=== PATIENT | male | born 1955 | race Caucasian/White ===

== ENCOUNTER 2017-02-17 09:00 | Emergency (ER) | payer BC ==
[~2017-02-17] VITALS: Ht 182.9 cm; Wt 135.3 kg
[~2017-02-17 09:00] MED LIST: ASPI1TAB83 PO; COEN1CAP46 PO; LISI-526 PO; OMEGA RED PO; SIMV20TA2 PO
[2017-02-17 09:07] VITALS: TEMP 36.5; Ht 182.9 cm; Wt 135.3 kg
[2017-02-17] MEDS ORDERED: COEN150C PO (09:32)
--- NOTE | 2017-02-17 09:58 | EMERGENCY ROOM VISIT NOTE ---
History Report prepared by Inocencio: Mark Gregg Under the Supervision of: Ella GomezO. First contact with patient: 09:32 Chief Complaint: HIP PAIN Stated Complaint: HIP PAIN,SCIATIC NERVE PAIN History of Present Illness The patient is a 61 year old male who presents to the Emergency Room with complaints of persistent bilateral hip pain that started a couple days ago. He says that he did wheelbarrow lifting a couple days ago, and ever since then, he has had bilateral hip pain, with pain that shoots down his left leg. He says that the pain does not go down the right leg. The patient says that the pain goes down the entire left leg. He notes that he has a history of right sciatic nerve pain, and had used Naproxen for that. He used Naproxen last night for the current pain, but it did not help at all. The patient states that sitting and lying down eases the pain, and movement/standing worsens the pain. He adds that he has felt some pressure in his rectum for the past few days, but has had regular bowel movements with no hard time going. He denies any numbness/tingling , abdominal pain, or leg swelling. No difficulty with urination, no numbness or tingling in his genital region. The patient says that he has not had any recent falls or trauma. He does not have any kidney problems or problems with bleeding/ulcers. Source of History: patient Onset: A couple days ago Position: other (bilateral hips) Timing: other (persistent) Modifying Factors (Worsening): movement, other (standing) Modifying Factors (Relieving): rest, other (lying down) Associated Symptoms: No abdominal pain, No numbness (or tingling) Note: Associated symptoms: Left leg pain. Pressure in rectum. Denies leg swelling or recent falls. Review of Systems See HPI for pertinent positives & negatives. A total of 10 systems reviewed and were otherwise negative. Past Medical & Surgical Medical Problems: (1) No chronic problems Family History No pertinent family history Social History Smoking Status: Never Smoker Marital Status: single Occupation Status: retired Current/Historical Medications Scheduled Aspirin (Aspirin), 81 MG PO QPM Coenzyme Q10 (Ubidecarenone) (Co Q-10), 150 MG PO DAILY Lisinopril (Prinivil), 30 MG PO QAM Simvastatin (Zocor), 20 MG PO QPM [[place] Red], 1,000 MG PO QAM Scheduled PRN Cyclobenzaprine Hcl (Flexeril), 10 MG PO TID PRN for Muscle Spasms Allergies Coded Allergies: No Known Allergies (Verified , NONE, 02/17/17) Physical Exam Vital Signs Date Time Temp Pulse Resp B/P (MAP) Pulse Ox O2 Delivery O2 Flow Rate FiO2 02/17/17 11:22 69 18 161/86 96 02/17/17 09:07 36.5 73 20 188/106 96 Room Air Physical Exam GENERAL: alert, well appearing, well nourished, no distress, non-toxic EYE EXAM: normal conjunctiva, PERRL and EOM's grossly intact OROPHARYNX: no exudate, no erythema, lips, buccal mucosa, and tongue normal and mucous membranes are moist NECK: supple, no nuchal rigidity, no adenopathy, non-tender LUNGS: Clear to auscultation. Normal chest wall mechanics HEART: no murmurs, S1 normal and S2 normal ABDOMEN: abdomen soft, non-tender, normo-active bowel sounds, no masses, no rebound or guarding. BACK: Back is symmetrical on inspection and there is no deformity. PSIS minimal reproducible tenderness bilaterally, as well as at border of sacrum bilaterally. No bony tenderness, no step-off. SKIN: no rashes and no bruising UPPER EXTREMITIES: upper extremities are grossly normal. LOWER EXTREMITIES: No pitting edema, no reproducible pain, no joint effusion, no evidence of trauma. NEURO EXAM: Normal sensorium, cranial nerves II-XII grossly intact, normal speech, no gross weakness of arms, no gross weakness of legs. Gross sensation intact. Patient ambulatory normally and with a steady gait. Medical Decision & Procedures Medications Administered Medications (Trade) Dose Ordered Sig/Jennie Route Start Time Stop Time Status Last Admin Dose Admin Ketorolac Tromethamine (Toradol Inj) 60 mg NOW STAT IM 02/17/17 10:01 02/17/17 10:02 DC 02/17/17 10:01 60 MG Lidocaine (Lidoderm Patch 5%) 1 patch NOW STAT TD 02/17/17 10:01 02/17/17 10:02 DC 02/17/17 10:28 1 PATCH ED Course 0949: The patient was evaluated in room A9B. A complete history and physical exam was performed. 1001: Ordered Lidoderm Patch 5% 1 patch TD, Toradol Inj 60 mg IM. 1104: I reevaluated the patient and he feels better and would like to go home. The patient verbally expressed understanding and agreement of the treatment plan. The patient will be discharged. Medical Decision Differential diagnosis includes but is not limited to: muscle strain, sciatica, lumbar radiculopathy. Medication Reconciliation: I attest that I have personally reviewed the patient' s current medication list. Blood pressure screening: Patient was found to have an elevated blood pressure and was referred to their primary doctor for recheck and further treatment. Doubt symptoms related to acute cauda equina, epidural abscess or hematoma, kidney stone, UTI/pyelonephritis, discitis. No trauma by history. Symptoms improved here following administration of Toradol. Patient with no fevers, no abdominal pain, doubt vascular etiology of symptoms. Patient's pain consistent with prior episode of sciatica. Discussed with patient close follow-up with family doctor, use of medications, symptoms watch and return for, he verbalized understanding of this was agreeable with plan. I do not feel patient's presentation and exam warranted emergent MRI at this time. Impression Primary Impression: Sciatica Scribe Attestation The scribe's documentation has been prepared under my direction and personally reviewed by me in its entirety. I confirm that the note above accurately reflects all work, treatment, procedures, and medical decision making performed by me. Departure Information Dispostion Home / Self-Care Prescriptions Cyclobenzaprine Hcl (FLEXERIL) 10 Mg Tab 10 MG PO TID Y for Muscle Spasms, #12 TAB Prov: Nika Gibbs, 02/17/17 Referrals Baldo Narayan [facility] (PCP) Patient Instructions My [facility] Additional Instructions Please call and follow-up with your family doctor next week to re-evaluate your symptoms. You may use over the counter antiinflammatory medicine such as ibuprofen/advil/alleve/motrin - do not take them on an empty stomach and make sure you are drinking plenty of water. If you have any worsening pain, develop numbness/tingling, difficulty going having a bowel movement or urinating, develop abdominal pain, fevers, or you have any other new or concerning symptoms , please return to the emergency room. Do not take the muscle relaxer and drive as it may make you dizzy or sleepy. Problem Qualifiers Primary Impression: Sciatica Laterality: left Qualified Codes: M54.32 - Sciatica, left side
[2017-02-17] MEDS ORDERED: LIDODERM (LIDOCAINE) PATCH 5% TD STA (10:01)
[2017-02-17] MEDS ORDERED: KETOROLAC TROMETHAMINE 60 MG/2 ML VIAL IM STA (10:01)
[2017-02-17] MEDS ORDERED: CYCL10TA6 PO (11:16)
[2017-02-17 11:22] VITALS: BP 161/86; PULSE 69; O2SAT 96
== END 2017-02-17 11:22 | disposition home or self-care (01) ==
LOC: C.EDB 09:01 → C.EDA 11:22
DX: M53.3 Sacrococcygeal disorders, not elsewhere classified (principal); Z79.82 Long term (current) use of aspirin; Z79.899 Other long term (current) drug therapy

== ENCOUNTER → 2017-11-25 | Outpatient (CLI) | payer BC, OTHER ==
[~2017-11-25] MED LIST changes: +COEN150C PO; -COEN1CAP46 PO
[2017-11-25 11:36] LABS: HEMATOCRIT 46.8 % (42-52); HEMOGLOBIN 16.1 g/dL (14.0-18.0); MEAN CELL VOLUME 88.3 fL (80-100); MEAN CORPUSCULAR HEMOGLOBIN 30.4 pg (25-34); MEAN CORPUSCULAR HGB CONC 34.4 g/dl (32-36); MEAN PLATELET VOLUME 9.9 fL (7.4-10.4); PLATELET COUNT 287 K/uL (130-400); RED CELL DISTRIBUTION WIDTH CV 14.6 % (11.5-14.5); RED CELL DISTRIBUTION WIDTH SD 47.1 fL (36.4-46.3); WHITE BLOOD COUNT 8.33 K/uL (4.8-10.8)
[2017-11-25 12:09] LABS: ALBUMIN 3.7 gm/dl (3.4-5.0); ALKALINE PHOSPHATASE 62 U/L (45-117); ALT/SGPT 41 U/L (12-78); AST/SGOT 22 U/L (15-37); BLOOD UREA NITROGEN 20 mg/dl (7-18); CALCIUM 8.9 mg/dl (8.5-10.1); CARBON DIOXIDE 25 mmol/L (21-32); CHOLESTEROL 145 mg/dl (0-200); CREATININE 1.14 mg/dl (0.60-1.40); GLUCOSE 116 mg/dl (70-99); LDL CHOLESTEROL CALCULATED 80 mg/dl; POTASSIUM 3.9 mmol/L (3.5-5.1); SODIUM 138 mmol/L (136-145); TOTAL PROTEIN 7.5 gm/dl (6.4-8.2)
== END | disposition home or self-care (01) ==
LOC: C.LABPBG 09:32
PROVIDERS: ATTEND Family Medicine
DX: I10 Essential (primary) hypertension (principal); E78.5 Hyperlipidemia, unspecified